=== PATIENT | female | born 1945 | race Caucasian/White ===

== ENCOUNTER 2018-05-28 07:30 | Inpatient (IN) | payer MEDICARE, OTHER ==
--- NOTE | 2018-05-19 11:42 | HP ---
HISTORY AND PHYSICAL: DATE OF ADMISSION/SURGERY: 05/28/18 DATE OF OFFICE VISIT: 05/15/18 SURGEON: Yola Mckay MD * (DICTATED BY JANINE REYNOSO) PROCEDURE: Right total hip arthroplasty. CHIEF COMPLAINT: Right hip pain. HISTORY OF PRESENT ILLNESS: Ms. Morris is a 72-year-old female with continued complaints of right hip pain. She has failed conservative treatment and elected to proceed with a right total hip arthroplasty, which is scheduled for 05/28/18. PAST MEDICAL HISTORY: Hypertension, high cholesterol, thrombocytopenia, and Sjogren's syndrome. PAST SURGICAL HISTORY: , appendectomy, bilateral knee arthroscopies, bilateral hammertoe repairs. CURRENT MEDICATIONS: 1. Valsartan 160 mg half a tab daily. 2. Amlodipine 2.5 mg daily. 3. Cevimeline 30 mg 3 times a day. 4. Metoprolol 100 mg daily. 5. Calcium with vitamin D. 6. Osteo Bi-Flex. 7. PreserVision AREDS. 8. Tylenol as needed. 9. Pravastatin sodium 20 mg q.h.s. 10. Ocuvite. ALLERGIES: No known drug allergies. FAMILY HISTORY: Lung cancer, breast cancer, and coronary artery disease. SOCIAL HISTORY: A 72-year-old female, she lives alone. She does not smoke or use drugs. Uses occasional alcohol. REVIEW OF SYSTEMS: A complete 14-point review of systems was reviewed with the patient. It was all negative or noncontributory. She denies history of DVT, PE , hepatitis, HIV, or anesthesia problems. PHYSICAL EXAMINATION GENERAL: She is well developed, well nourished. VITAL SIGNS: She stands 65 inches tall, weighs 180 pounds, blood pressure is 124/86, her heart rate is 72. HEENT: Normocephalic, atraumatic. NECK: Supple. No palpable lymph nodes. PULMONARY: Lungs are clear to auscultation bilaterally. CARDIO: Regular rate and rhythm. Strong S1 and S2. ABDOMEN: Soft, nontender, nondistended. NEUROLOGICAL: She is alert and oriented x3. MUSCULOSKELETAL: Right lower extremity: The skin is intact. There are no open wounds or abrasions. She has decreased internal and external rotation of the right hip and walks with an antalgic-type gait favoring her right hip. She has 2+ dorsalis pedis pulses, intact sensation. Her lower extremity muscle group strengths are intact at 5/5. ASSESSMENT AND PLAN: Ms. 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 She has failed conservative treatment and elected to proceed with a right total hip arthroplasty, which is scheduled for 05/28/[address] Mckay discussed the risks and benefits of the surgery at today's visit. All of her questions were answered. She will follow up with Dr. Mckay 2 weeks after the surgery. JANINE REYNOSO [id number]/[facility] #: [id number] ROMAINE
--- NOTE | 2018-07-16 03:41 | HP ---
HISTORY AND PHYSICAL: DATE OF ADMISSION/SURGERY: 07/23/18 DATE OF OFFICE VISIT: 07/13/18 SURGEON: Yola Mckay MD * (DICTATED BY JANINE REYNOSO) PROCEDURE: Right total hip arthroplasty. CHIEF COMPLAINT: Right hip pain. HISTORY OF PRESENT ILLNESS: Ms. Morris is a 72-year-old female with complaints of right hip pain. She has failed conservative treatment and elected to proceed with a right total hip arthroplasty. PAST MEDICAL HISTORY: Hypertension, high cholesterol, thrombocytopenia, and Sjogren's syndrome. PAST SURGICAL HISTORY: , appendectomy, bilateral knee arthroscopies, and bilateral hammertoe repairs. CURRENT MEDICATIONS: 1. Amlodipine 10 mg daily. 2. Metoprolol 100 mg daily. 3. Pravastatin 20 mg daily. 4. Ocuvite. 5. Cevimeline 30 mg. ALLERGIES: No known drug allergies. FAMILY HISTORY: Lung cancer, breast cancer, coronary artery disease, and stroke. SOCIAL HISTORY: She is a 72-year-old female, she lives alone. She does not smoke or use drugs. Uses occasional alcohol. REVIEW OF SYSTEMS: A complete 14-point review of systems was reviewed with the patient. It was all negative or noncontributory. PHYSICAL EXAMINATION GENERAL: She is well developed, well nourished, in no acute distress. VITAL SIGNS: She stands 65 inches tall, weighs 175 pounds, her blood pressure is 132/78, and her heart rate is 80. HEENT: Normocephalic, atraumatic. NECK: Supple. No palpable lymph nodes. PULMONARY: Her lungs are clear to auscultation bilaterally. CARDIO: Regular rate and rhythm. Strong S1, S2. ABDOMEN: Soft, nontender, nondistended. NEUROLOGICAL: She is alert and oriented x3. MUSCULOSKELETAL: Right lower extremity: Skin is intact. There are no open wounds or abrasions. She walks with an antalgic-type gait favoring her right hip. She has decreased internal and external rotation of right hip. She has 2 + dorsalis pedis pulse, intact sensation. Her lower extremity muscle group strengths are intact at 5/5. ASSESSMENT AND PLAN: Ms. Morris is a 72-year-old female with end-stage osteoarthritis of the right hip. She has failed conservative treatment and elected to proceed with a right total hip arthroplasty. The surgery is scheduled for 07/23/[address] Mckay discussed the risks and benefits of the surgery at today's visit and all of her questions were answered. She will follow up with Dr. Mckay 2 weeks after the surgery. JANINE REYNOSO [id number]/[facility] #: [id number] ROMAINE
[2018-07-22] MEDS ORDERED: Buffered Lidocaine 0.9% SYRIN* 5 ML/SYR SYRINGE INTRADERM ONE (13:06)
[2018-07-23] MEDS ORDERED: Gabapentin CAP(*) 300 MG PO ONE (06:00)
[2018-07-23] MEDS ORDERED: Dexamethasone IV* 4 MG/ML 1 ML (4 MG) IV SLOW PU ONE (06:00)
[2018-07-23] MEDS ORDERED: Acetaminophen IV 1GM/100ML * 1,000 MG/100 ML VIAL IVPB ONE (06:00)
[2018-07-23] MEDS ORDERED: Famotidine IV* 10 MG/ML 2 ML (20 mg) IV ONE (06:00)
[2018-07-23] MEDS ORDERED: ceFAZolin 2 GM in NS PREMIX(*) 2 GM/100 ML BAG IVPB ONE (12:55)
[2018-07-23] MEDS ORDERED: Famotidine IV* 10 MG/ML 2 ML (20 mg) ONE (13:03)
[2018-07-23] MEDS ORDERED: Dexamethasone IV* 4 MG/ML 1 ML (4 MG) ONE (13:04)
[2018-07-23] MEDS ORDERED: ROPIVACAINE 5 MG/ML 30 ML BTL (0.5%) ONE (13:54)
[2018-07-23] MEDS ORDERED: Ropivacaine (OR use only) 2 MG/ML 10 ML ONE (13:54)
[2018-07-23] MEDS ORDERED: fentaNYL* 50 MCG/ML 2 ML VIAL (100 MCG VIAL) ONE (13:56)
[2018-07-23] MEDS ORDERED: Midazolam* 1 MG/ML 5 ML VIAL (5 MG) ONE ×2 (13:56→15:00)
[2018-07-23] MEDS ORDERED: Propofol* 10 MG/ML 20 ML BTL IV PUSH ONE (13:57)
[2018-07-23] MEDS ORDERED: Ondansetron INJ* 2 MG/ML VIAL ONE (13:57)
[2018-07-23] MEDS ORDERED: fentaNYL* 50 MCG/ML 2 ML VIAL (100 MCG VIAL) IV PRN (15:43)
[2018-07-23] MEDS ORDERED: Ondansetron INJ* 2 MG/ML VIAL IV PRN (15:43)
[2018-07-23] MEDS ORDERED: Naloxone* 0.4 MG/ML 1 ML VIAL IV PRN (15:43)
[2018-07-23] MEDS ORDERED: HYDROmorphone INJ1* 1 MG/ML SYRINGE IV PRN (15:43)
[2018-07-23] MEDS ORDERED: DiMENhydriNATE IV* 50 MG/ML VIAL IV PUSH PRN (15:43)
[2018-07-23] MEDS ORDERED: Magnesium Hydroxide LIQ* 30 ML UDC PO PRN (16:03)
[2018-07-23] MEDS ORDERED: oxyCODONE/Acetamin 5/325 MG* TAB PO PRN (16:03)
[2018-07-23] MEDS ORDERED: Morphine INJ* 2 MG/ML 1 ML SYRINGE (TWO MG - NEW SYRINGE VERSION) IV PRN (16:03)
[2018-07-23] MEDS ORDERED: Bisacodyl SUPP* 10 MG SUPP PR PRN (16:03)
[2018-07-23] MEDS ORDERED: diPHENhydraMINE IV* 50 MG/ML 1 ml VIAL (BENADRYL) IV PRN (16:03)
[2018-07-23] MEDS ORDERED: Warfarin TAB(*) 6 MG PO ONE (17:00)
--- NOTE | 2018-07-23 17:28 | RAD ---
HISTORY: S/P RTHA COMPARISONS: April 10, 2018 VIEWS: 3 , Frontal view of the pelvis with frontal and crosstable lateral views of the right hip FINDINGS: BONE DENSITY: Normal. BONES: The patient is status post right hip arthroplasty. There is no hardware failure or osteolysis. JOINTS: The patient is status post right hip arthroplasty. ALIGNMENT: There is no dislocation. SOFT TISSUES: There is post surgical change to the soft tissues. OTHER FINDINGS: None. IMPRESSION: STATUS POST RIGHT HIP ARTHROPLASTY
[2018-07-23] MEDS ORDERED: CMCS:Saliva Substitute (NF) 1 SPRAY BTL MT PRN (18:35)
--- OUTSIDE RECORDS SUMMARY | 2018-07-23 19:50 | XMS REPORT ---
:1945 External Reference #:[id number] Author Organization [employer] Address [address] [place] [address] Phone [phone] Care Team Providers Name Role Phone Danilo Doyle MD Primary Care Physician Unavailable Payers Type Date Identification Numbers Payment Provider Subscriber Medicare Primary Policy Number: [id number] Medicare Adan Morris PayID: [id number] [address] [place] [address] Commercial Policy Number: [id number] [facility] Adan Morris PayID: [id number] [address] [place] [address] Problems Date Description Provider Status Onset: 04/10/2018 Localized, primary osteoarthritis of the Yola Nadia Mckay Active pelvic region and thigh Family History Date Family Member(s) Problem(s) Comments General Arthritis General Arthritis, Osteo General sister has deforming osteoarthritis General Lung Cancer Mother Lung Cancer Social History Type Date Description Comments Lives With Alone Occupation Retired ETOH Use Rarely consumes alcohol Smoking Patient is a former smoker Pt. quit 28 years ago. less than a pack/day Exercise Type/Frequency Exercises regularly Allergies, Adverse Reactions, Alerts Date Description Reaction Status Severity Comments 10/03/2016 NKDA active Medications Medication Date Status Form Strength Qnty SIG Indications Ordering Provider Biotene 10/20/ Active Gel 90unit apply Akash Oralbalance 2017 s twice Ramiro, Dry Mouth daily as M.D. Moisturizing needed for dry mouth Chapstick 10/20/ Active Ointment 10gm apply for M19.049 Akash Ultra Moisture 2017 dry lips Ramiro, Daytime M.D. Formula Evoxac 12/01/ Active Capsules 30mg 360cap take 1 M35.2015 s capsule by randi Rubio M.DSeven three times daily as needed for dry mouth Metoprolol 0000/ Active Tablets ER 100mg 1 by mouth Unknown Succinate ER 0000 24HR every day Calcium 1000 + 00/00/ Active Tablets 1000-800mg once daily Unknown D 0000 -Unit Osteo Bi-Flex / Active Tablets Unknown Advanced 0000 Triple Strength Preservision / Active Capsules 2 by mouth Unknown Areds 0000 every day Tylenol / Active Capsules 325mg take two Unknown 0000 tablets by mouth four times a day as needed Pravastatin / Active Tablets 20mg 1 tablet Unknown Sodium 0000 by mouth once daily at bedtime Acyclovir / Active Ointment 5% Apply To Unknown 0000 Cold Sore as Directed Valsartan / Active Tablets 160mg Take 1/2 Unknown 0000 Tablet By Mouth Every Day Amlodipine / Active Tablets 10mg 1 by mouth Unknown Besylate 0000 every day Glucosamine / Active Unknown 0000 Salivasure 10/03/ Hx Lozenges 60unit Use daily M35.01 2015 - s as needed Ramiro 04/21/ for M.DSeven 2017 dryness Fish Oil / Hx Capsules 300mg 1 by mouth Unknown Concentrate 0000 - twice day 2017 Omeprazole 00/00/ Hx Unknown 0000 - 2017 Doxycycline / Hx Unknown Hyclate 0000 - 2017 Medications Administered in Office Medication Date Status Form Strength Qnty SIG Indications Ordering Provider Depomedrol Administered Injection Yola 40MG 018 Nadia Mckay Vital Signs Date Vital Result Comment 07/13/2018 Height 65 inches 5'5" Weight 175.00 lb Heart Rate 80 /min BP Systolic 132 mmHg BP Diastolic 78 mmHg Respiratory Rate 14 /min Pain Level 5 BMI (Body Mass Index) 29.1 kg/m2 05/15/2018 Height 65 inches 5'5" Respiratory Rate 16 /min 04/21/2018 Height 65 inches 5'5" Weight 178.38 lb Heart Rate 95 /min BP Systolic 150 mmHg BP Diastolic 90 mmHg Pain Level 0 O2 % BldC Oximetry 97 % BMI (Body Mass Index) 29.7 kg/m2 04/10/2018 Height 65 inches 5'5" Weight 175.00 lb Respiratory Rate 16 /min Body Temperature 97.9 F Pain Level 8 BMI (Body Mass Index) 29.1 kg/m2 10/20/2017 Height 65 inches 5'5" Weight 173.00 lb Heart Rate 76 /min BP Systolic Sitting 189 mmHg BP Diastolic Sitting 96 mmHg Respiratory Rate 14 /min Pain Level 0 BMI (Body Mass Index) 28.8 kg/m2 04/21/2017 Height 65 inches 5'5" Weight 181.38 lb Heart Rate 84 /min BP Systolic Sitting 156 mmHg BP Diastolic Sitting 90 mmHg Respiratory Rate 14 /min Pain Level 0 BMI (Body Mass Index) 30.2 kg/m2 10/03/2016 Height 65 inches 5'5" Weight 180.00 lb Heart Rate 68 /min BP Systolic Sitting 130 mmHg BP Diastolic Sitting 80 mmHg Respiratory Rate 14 /min Body Temperature 96.6 F Pain Level 0 BMI (Body Mass Index) 30.0 kg/m2 Results Test Date Test Result H/L Range Note CBC Auto Diff 05/15/2018 White Blood Count 4.4 10^3/uL 3.5-10.8 Red Blood Count 4.26 10^6/uL 4.00-5.40 Hemoglobin 12.0 g/dL 12.0-16.0 Hematocrit 36 % 35-47 Mean Corpuscular Volume 85 fL 80-97 Mean Corpuscular Hemoglobin 28 pg 27-31 Mean Corpuscular HGB Conc 33 g/dL 31-36 Red Cell Distribution Width 14 % 10.5-15 Platelet Count 48 10^3/uL Low 150-450 Mean Platelet Volume 11.1 um3 High 7.4-10.4 Abs Neutrophils 2.7 10^3/uL 1.5-7.7 Abs Lymphocytes 1.1 10^3/uL 1.0-4.8 Abs Monocytes 0.5 10^3/uL 0-0.8 Abs Eosinophils 0.1 10^3/uL 0-0.6 Abs Basophils 0 10^3/uL 0-0.2 Abs Nucleated RBC 0 10^3/uL Granulocyte % 60.9 % 38-83 Lymphocyte % 25.5 % 25-47 Monocyte % 11.3 % High 0-7 Eosinophil % 1.4 % 0-6 Basophil % 0.9 % 0-2 Nucleated Red Blood Cells % 0.1 Urinalysis Profile 05/15/2018 Urine Color Yellow Urine Appearance Clear Urine Specific [employer] [place] 1.011 1.010-1.030 Urine pH 5.0 5-9 Urine Urobilinogen Negative Negative Urine Ketones Negative Negative Urine Protein Negative Negative Urine Leukocytes Trace Negative Urine Blood Negative Negative * * Negative 1 Urine Nitrite Negative Negative Urine Bilirubin Negative Negative Urine Glucose Negative Negative Urine White Blood Cell Trace(0-5/hpf) Absent Urine Red Blood Cell Absent Absent Urine Bacteria Absent Absent Urine Squamous Epithelial Cell Present Absent Inr/Protime 05/15/2018 Inr 0.96 0.77-1.02 Laboratory test finding 05/15/2018 Partial Thrombo Time 28.3 seconds 26.0 -36.3 PTT Comp Metabolic Panel 05/15/2018 Sodium 132 mmol/L Low 135-145 Potassium 4.3 mmol/L 3.5-5.0 Chloride 99 mmol/L Low 101-111 Co2 Carbon Dioxide 28 mmol/L 22-32 Anion Gap 5 mmol/L 2-11 Glucose 92 mg/dL 70-100 Blood Urea Nitrogen 16 mg/dL 6-24 Creatinine 0.68 mg/dL 0.51-0.95 BUN/Creatinine Ratio 23.5 High 8-20 Calcium 9.1 mg/dL 8.6-10.3 Total Protein 7.2 g/dL 6.4-8.9 Albumin 3.8 g/dL 3.2-5.2 Globulin 3.4 g/dL 2-4 Albumin/Globulin Ratio 1.1 1-3 Total Bilirubin 0.60 mg/dL 0.2-1.0 Alkaline Phosphatase 89 U/L 34-104 Alt 13 U/L 7-52 Ast 20 U/L 13-39 Egfr Non- 85.3 >60 Egfr 103.2 >60 2 Type & Screen 05/15/2018 Patient Blood Type O Negative Antibody Screen POSITIVE Laboratory test finding 05/15/2018 Direct Eliseo NEGATIVE Antibody Identification SEE RESULTS BELO <SEE NOTE> 3 Urine Culture And 05/15/2018 Urine Culture SEE RESULT BELOW 4 Sensitivities Laboratory test finding 10/07/2016 C Reactive Protein 1.53 mg/L < 5.00 5 Liver Function Panel 10/07/2016 Total Protein 7.7 g/dL 6.4-8.9 Albumin 3.7 g/dL 3.2-5.2 Globulin 4.0 g/dL 2-4 Albumin/Globulin Ratio 0.9 Low 1-3 Total Bilirubin 0.70 mg/dL 0.2-1.0 Direct Bilirubin 0.10 mg/dL 0.03-0.18 Indirect Bilirubin 0.6 mg/dL 0.3-1.0 Alkaline Phosphatase 75 U/L 34-104 Alt 10 U/L 7-52 Ast 18 U/L 13-39 Laboratory test finding 10/07/2016 Complement C3 137 mg/dL 75 - 175 6 Complement C4 27 mg/dL 14 - 40 7 Anti Double Stranded Dna AB <12.3 IU/mL 8 Angiotensin Converting Enzyme 28 U/L 8 - 53 9 1 *Ascorbic acid is present which may interfere with detection of blood. 2 Because ethnic data is not always readily available, this report includes an eGFR for both -Americans and non- Americans. The National Kidney Disease Education Program (NKDEP) does not endorse the use of the MDRD equation for patients that are not between the ages of 18 and 70, are , have extremes of body size, muscle mass, or nutritional status, or are non- or non-. According to the National Kidney Foundation, irrespective of diagnosis, the stage of the disease is based on the level of kidney function: Stage Description GFR(mL/min/1.73 m(2)) 1 Kidney damage with normal or decreased GFR 90 2 Kidney damage with mild decrease in GFR 60-89 3 Moderate decrease in GFR 30-59 4 Severe decrease in GFR 15-29 5 Kidney failure <15 (or dialysis) 3 SEE RESULTS BELOW C D 4 SEE RESULT BELOW Name: ADAN MORRIS : [address]: Yola Mckay MD Acct: [id number] Unit: [id number] AGE: 72 Location: [facility] Re05/15/18 SEX: F Status: REG REF SPEC: [id number] TONY: 05/15/18-[address] [facility] [address]: Yola Mckay MD REQ: [id number] RECD: 05/15/18141 STATUS: COMP OTHR DR: Danilo Doyle MD _ SOURCE: URINE SPDESC: ORDERED: Urine Culture Urine Source: Clean Catch Procedure Result Reported Site Urine Culture Final 05/16/18- 1306 ML No growth of clinically significant organisms * ML - Main Lab . END OF REPORT DEPARTMENT OF PATHOLOGY, [address] [place] [id number] Jorge Villa M.D. Director [facility] # [id number] 5 Acute inflammation: >10.00 6 Test Performed by: [place] [address] Inspector Watch Train: Gonzales Long II, M.D., Ph.D. 7 Test Performed by: [place] [address] Inspector Watch Train: Gonzales Long II, M.D., Ph.D. 8 REFERENCE VALUE <30.0 (Negative) Test Performed by: [place] [address] Inspector Watch Train: Gonzales Long II, M.D., Ph.D. 9 Test Performed by: [place] [address] Inspector Watch Train: Gonzales Long II, M.D., Ph.D. Procedures Date CPT Code Description Status 06/17/2018 69429 Inj/Aspir Major JT Or Bursa W/ US Completed Encounters Type Date Location Provider CPT E/M Dx Office Visit 07/13/2018 [facility] Yola Mckay M.D. 64204 M25.551 8:45a Of Maria Elena M16.11 Office Visit 04/21/2018 11:00a [facility] Rubio 41773 R68.2 Yadiel Zuniga M19.049 Office Visit 04/10/2018 10:30a [facility] Yola Mckay M.D. 74781 M25.551 Maria Elena M16.11 Office Visit 10/20/2017 11:00a [facility] 91788 R68.2 Yadiel Zuniga Z79.899 R76.0 M19.049 Office Visit 04/21/2017 11:00a [facility] 57558 R68.2 Yadiel Zuniga Z79.899 Office Visit 10/03/2016 1:00p [facility], [address]886 R76.0 [facility] Nadia R68.2 M17.12 M19.049 Plan of Care Future Appointment(s):07/23/2018 4:30 pm - Shekhar Bryson PA-C at [facility].A.07/23/2018 4:30 pm - JANINE Mathews at [facility]..07/23/2018 4:30 pm - Yola Mckay M.D. at [facility]..04/21/2019 11:00 am - Akash Rubio M.D. at [facility]07/13/2018 - Yola Mckay M.D.M25.551 Pain in right hipFollow up :Follow up: 7-10 days before [id number] Unilateral primary osteoarthritis, right hip
[2018-07-23] MEDS ORDERED: oxyCODONE/Acetamin 5/325 MG* TAB ONE (20:51)
[2018-07-23] MEDS ORDERED: Morphine INJ* 2 MG/ML 1 ML SYRINGE (TWO MG - NEW SYRINGE VERSION) ONE (20:51)
[2018-07-23] MEDS: oxyCODONE/Acetamin 5/325 MG* TAB PO PRN (21:00)
[2018-07-23 21:56] LABS: Hematocrit 38 % (35-47); Hemoglobin 12.6 g/dl (12.0-16.0); Mean Corpuscular HGB Conc 33 g/dl (31-36); Mean Corpuscular Hemoglobin 28 pg (27-31); Mean Corpuscular Volume 86 fL (80-97); Red Blood Count 4.43 10^6/ul (4.00-5.40)
[2018-07-23 21:57] LABS: ABS Basophils 0 10^3/ul (0-0.2); ABS Eosinophils 0 10^3/ul (0-0.6); ABS Lymphocytes 1.3 10^3/ul (1.0-4.8); ABS Monocytes 0.9 10^3/ul (0-0.8); ABS Neutrophils 4.7 10^3/ul (1.5-7.7); ABS Nucleated RBC 0 10^3/ul; Lymphocyte % 18.2 % (25-47); Mean Platelet Volume 10.2 um3 (7.4-10.4); Platelet Count 89 10^3/ul (150-450); Red Cell Distribution Width 15 % (10.5-15)
[2018-07-23 21:58] LABS: Eosinophil % 0.5 % (0-6); Nucleated Red Blood Cells % 0
--- NOTE | 2018-07-23 22:56 | CONS ---
CC: Dr. Danilo Doyle; Dr. Mckay * CONSULTATION REPORT: DATE OF CONSULT: 07/23/18 PRIMARY CARE PROVIDER: Dr. Danilo Doyle. ATTENDING PHYSICIAN WHILE IN THE HOSPITAL: Dr. Darby Mcgrath (report dictated by Nicholas Dickson NP). REASON FOR MEDICAL CONSULTATION: Evaluation of medical management and comorbid medical conditions. HISTORY OF PRESENT ILLNESS: I refer you to Dr. Mckay's H and P for further details. In short, Mrs. Morris is a 72-year-old female patient. 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 She is coming into our orthopedic service today because she has been experiencing a significant amount of right hip pain. She underwent care, underwent injections, PT, failed conservative therapy, and sought care with Dr. Mckay and it was felt that she would benefit from a total hip replacement, which underwent today. She was evaluated in the PACU setting. She is denying having any chest pain or shortness of breath. She denies having any abdominal pain. She says that she has decreased sensation to her right leg, but she did have a spinal anesthetic done today. She says movement is slowly coming back. She denies having any chest pain or shortness of breath. No abdominal pain and she denies feeling lightheaded or dizzy, but because of her medical complexity, we were asked to evaluate in consult. PAST MEDICAL HISTORY: Again significant for: 1. Hypertension. 2. Hyperlipidemia. 3. 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 4. Sjogren's. 5. PAOLA, again mild and does not wear CPAP. PAST SURGICAL HISTORY: 1. She has had . 2. Appendectomy. 3. Bilateral knee arthroscopies. 4. Hammertoe repair. 5. Right total hip arthroplasty done today. MEDICATIONS: Her home medications according to the patient include: 1. Amlodipine 10 mg daily. 2. PreserVision 2 tablets p.o. daily. 3. Amlodipine 10 mg daily. 4. Biotin 1 spray by mouth t.i.d. as needed. 5. Pravachol 20 mg at bedtime. 6. Elocon 1 application topically daily as needed. 7. Metoprolol succinate 100 mg p.o. daily in the morning. 8. Osteo Bi-Flex 2 tablets p.o. in the morning. 9. Evoxac 30 mg p.o. t.i.d. 10. Calcium 1 tablet p.o. q.a.m. 11. Acyclovir 1 application topically t.i.d. as needed. 12. Tylenol Extra Strength 500 to 1000 mg every 6 hours as needed. ALLERGIES TO MEDICATIONS: MAXIMO INHIBITOR, which caused her to have cough. FAMILY HISTORY: Her mother had a history of lung cancer. Father had a history of heart disease. SOCIAL HISTORY: She rarely drinks alcohol. She does not smoke. She is . Surrogate decision maker is her daughter, Tanika. REVIEW OF SYSTEMS: There is no documented fevers. She denies having any significant weight change. There was no double vision. She denies having any ear discharge. There was no rhinorrhea. There is no sore throat. There is no thyroid enlargement. She again denies having any chest pain. There is no orthopnea. There is no nocturnal dyspnea. There was no abdominal pain. No nausea, no vomiting, no dysuria, no frequency, no seizure, no loss of consciousness, no pruritus, no skin ulcerations. Review of 14 systems completed , all others negative. PHYSICAL EXAM: Vital Signs: Blood pressure 129/79 with a pulse of 68, respirations are 15, O2 sat 98% on 2 L, temperature is 97.0. General: At this time, Mrs. Morris is a 72-year-old female patient. She was evaluated in the PACU setting. She appears to be well nourished, well developed. She does not appear to be in any acute distress. HEENT: Head: Atraumatic and normocephalic. Eyes: EOMs are intact. Her sclerae was anicteric and not pale. Neck was supple. Throat: Oral mucosa appears to be moist. No oropharyngeal erythema. Heart: Sounds S1, S2. She had a regular rate and rhythm. There were no murmurs, rubs, or gallops. Lungs: Clear to auscultation. No wheezes, rales, or rhonchi. Abdomen: Bowel sounds hypoactive, but present. Extremities : She has limited range of motion as she using in a hip adductor pillow, but distal CSM checks are intact with the exception of sensation to the right lower extremity, but she is starting to now have plantar and dorsiflexion and she has good pulse and cap refill to the right lower extremity. She has good sensation to the left lower extremity at this point and good cap refill and 2+ pulses. No peripheral edema. She moves the upper extremity with 5/5 strength. Neurologically, she is awake. She is alert. She is oriented x3. She had no gross focal deficits. Her skin was grossly intact with the exception she has an incision to the right hip, which is covered with an ABD dressing that is clean, dry, and intact. DIAGNOSTIC STUDIES/LAB DATA: She did have labs today. WBC of 7, RBC of 4.43, hemoglobin of 12.6, hematocrit of 37.9, platelet count was 89,000. Platelet count 15 days ago was 79,000. Her INR was 0.96. Sodium was 133, potassium 4.6 , chloride 100, bicarb 27, BUN 15, creatinine 0.71, glucose 94. Urine preop showed 3+ leukocyte esterase, 3+ wbc's. Urine culture was negative. She did have a preop chest x-ray, which showed no active cardiopulmonary disease. She had a preoperative EKG as well showing a normal sinus rhythm with a rate of 70. She had a PAC. No ST elevations or T-wave inversions. Old medical records are reviewed. ASSESSMENT AND PLAN: Mrs. Morris is a 72-year-old female patient presenting to the orthopedic service today for an elective total hip. We were asked to evaluate in consult. Recommendations at this point are: 1. Status post right total hip with further management with Dr. Mckay and her team. 2. Hypertension. I will hold her Norvasc. Postoperatively, we will restart this depending on blood pressure readings tomorrow. We will obviously continue the beta- madiha and add medications based on her blood pressure readings. 3. Hyperlipidemia. Continue statin therapy. 4. History of thrombocytopenia. Presumed ITP. Platelet count preoperatively today was 89,000. We will follow this closely. Monitor for any signs of bleeding. If this becomes an issue, we will consider low threshold for Hematology consult and possible transfusion, but at this point, she appears to be stable and we will continue to monitor. 5. History of Sjogren's. It appears to be well controlled. We will continue her meds as prescribed. 6. History of obstructive sleep apnea. It is mild. I will go ahead and do 24 - hour pulse oximetry monitoring postoperatively, particularly in the setting of a block and spinal anesthesia. 7. DVT prophylaxis. Deferred to the primary team, but again, we will monitor the platelets closely. I would recommend avoiding heparin. 8. Fluid, electrolyte, nutrition. She can have a regular diet. 9. Code status. Full code. TIME SPENT: Time spent on the consult was 60 minutes, greater than half time was spent [id number] with the patient obtaining my history and physical, other half time was spent going over the plan of care with the patient and implementing plan of care. I did discuss the plan of care with my attending, Dr. Mcgrath; she is in agreement. NICHOLAS DICKSON, CALLY [id number]/[facility] #: [id number] MTDD
[2018-07-23] MEDS: Docusate CAP* 100 MG PO SCH (23:27)
[2018-07-23] MEDS: oxyCODONE TAB* 5 MG TAB PO PRN (23:27)
[2018-07-23] MEDS: Acetaminophen TAB* 325 MG PO SCH (23:29)
[2018-07-23] MEDS: Atorvastatin* 10 MG TAB PO SCH (23:31)
[2018-07-23] MEDS: Magnesium Hydroxide LIQ* 30 ML UDC PO SCH (23:33)
[2018-07-23] MEDS: ceFAZolin 1 GM in Dextrose (*) 1 GM/50 ML BAG IVPB SCH (23:39)
[2018-07-24] MEDS: CEVIMELINE 30 MG PO SCH ×4 (00:11→19:27)
[2018-07-24] MEDS: oxyCODONE/Acetamin 5/325 MG* TAB PO PRN ×2 (04:32→09:25)
[2018-07-24] MEDS: ceFAZolin 1 GM in Dextrose (*) 1 GM/50 ML BAG IVPB SCH ×2 (06:36→14:17)
--- NOTE | 2018-07-24 07:02 | RAD ---
INDICATION: Total right hip replacement. COMPARISON: Comparison is made with a prior x-ray study of the right hip from April 08, 2008. TECHNIQUE: An AP view of the pelvis and frontal and lateral views of the right hip were obtained. FINDINGS: The patient is undergoing a total hip replacement surgery. The acetabular prostheses is in place and there is a femoral template prostheses in place. The bones and prostheses are in normal alignment. There is air within the soft tissues consistent with the patient's surgery. IMPRESSION: INTRAOPERATIVE CONTROL FILMS.
[2018-07-24] MEDS: Acetaminophen TAB* 325 MG PO SCH ×3 (07:15→21:53)
[2018-07-24 08:33] LABS: ABS Basophils 0 10^3/ul (0-0.2); ABS Eosinophils 0 10^3/ul (0-0.6); ABS Lymphocytes 0.8 10^3/ul (1.0-4.8); ABS Monocytes 0.8 10^3/ul (0-0.8); ABS Neutrophils 6.3 10^3/ul (1.5-7.7); ABS Nucleated RBC 0 10^3/ul; Eosinophil % 0 % (0-6); Hematocrit 28 % (35-47); Hemoglobin 9.4 g/dl (12.0-16.0); Lymphocyte % 9.6 % (25-47); Mean Corpuscular HGB Conc 34 g/dl (31-36); Mean Corpuscular Hemoglobin 29 pg (27-31); Mean Corpuscular Volume 85 fL (80-97); Mean Platelet Volume 10.3 um3 (7.4-10.4); Nucleated Red Blood Cells % 0; Platelet Count 53 10^3/ul (150-450); Red Blood Count 3.25 10^6/ul (4.00-5.40); Red Cell Distribution Width 15 % (10.5-15); White Blood Count 7.9 10^3/ul (3.5-10.8)
[2018-07-24 08:34] LABS: INR 1.08 (0.77-1.02)
[2018-07-24] MEDS: Magnesium Hydroxide LIQ* 30 ML UDC PO SCH ×2 (08:34→19:28)
[2018-07-24] MEDS: Metoprolol Succinate XL TAB* 100 MG PO SCH (08:35)
[2018-07-24] MEDS: Docusate CAP* 100 MG PO SCH ×2 (08:35→19:27)
[2018-07-24] MEDS ORDERED: Vitamin THERAPEUTIC TAB PO SCH (09:00)
[2018-07-24 09:04] LABS: EGFR Non-African American 85.3 (>60)
--- NOTE | 2018-07-24 09:26 | PN ---
Progress Note - Progress Note Date of Service: 07/24/18 SOAP: Subjective: POD #1 Right TAHIRA, doing well. Pain controlled. Denies CP/SOB, n/v, f/c. Objective: Vitals: Temp Pulse Resp BP Pulse Ox 97.8 F 66 18 121/65 97 07/24/18 03:46 07/24/18 07:15 07/24/18 07:15 07/24/18 07:15 07/24/18 07:15 Gen: A&Ox3, NAD at rest sitting in bed Right Hip: Dressing C/D/I, thigh soft, NT. +f/e at ankles and MTPs. N/V intact Labs: Laboratory Results - last 24 hr 07/23/18 07/24/18 07/24/18 13:07 07:53 07:53 WBC 7.0 7.9 RBC 4.43 3.25 L Hgb 12.6 9.4 L Hct 38 28 L MCV 86 85 MCH 28 29 MCHC 33 34 RDW 15 15 Plt Count 89 L 53 L MPV 10.2 10.3 Neut % (Auto) 67.7 79.8 Lymph % (Auto) 18.2 L 9.6 L Gove % (Auto) 12.9 H 10.5 H Eos % (Auto) 0.5 0 Baso % (Auto) 0.7 0.1 Absolute Neuts (auto) 4.7 6.3 Absolute Lymphs (auto) 1.3 0.8 L Absolute Monos (auto) 0.9 H 0.8 Absolute Eos (auto) 0 0 Absolute Basos (auto) 0 0 Absolute Nucleated RBC 0 0 Nucleated RBC % 0 0 INR (Anticoag Therapy) 1.08 H Sodium Potassium Chloride Carbon Dioxide Anion Gap BUN Creatinine Est GFR ( Amer) Est GFR (Non-Af Amer) BUN/Creatinine Ratio Glucose Calcium 07/24/18 07:53 WBC RBC Hgb Hct MCV MCH MCHC RDW Plt Count MPV Neut % (Auto) Lymph % (Auto) Gove % (Auto) Eos % (Auto) Baso % (Auto) Absolute Neuts (auto) Absolute Lymphs (auto) Absolute Monos (auto) Absolute Eos (auto) Absolute Basos (auto) Absolute Nucleated RBC Nucleated RBC % INR (Anticoag Therapy) Sodium 133 L Potassium 3.9 Chloride 102 Carbon Dioxide 28 Anion Gap 3 BUN 21 Creatinine 0.68 Est GFR ( Amer) 103.2 Est GFR (Non-Af Amer) 85.3 BUN/Creatinine Ratio 30.9 H Glucose 134 H Calcium 8.4 L Assessment: POD #1 Right TAHIRA Plan: PT/OT with posterior hip precautions INR 1.08, Coumadin 6mg tonight with Lovenox bridge. Spoke with Dr. Chin who recommends to continue with this, recheck platelets tomorrow. Will consult for possible IVIG Continue current pain medication
[2018-07-24] MEDS: Ondansetron INJ* 2 MG/ML VIAL IV PRN ×2 (10:58→17:42)
[2018-07-24] MEDS ORDERED: Enoxaparin(*) 30 MG/0.3 ML SYR SUBCUT SCH (12:00)
[2018-07-24] MEDS ORDERED: Enoxaparin(*) 40 MG/0.4 ML SYR SUBCUT SCH (12:00)
[2018-07-24] MEDS ORDERED: Metoclopramide IV* 5 MG/ML 2 ML VIAL ONE (13:21)
[2018-07-24] MEDS ORDERED: Metoclopramide IV* 5 MG/ML 2 ML VIAL IV PRN (13:24)
[2018-07-24] MEDS ORDERED: Warfarin TAB(*) 6 MG PO SCH (17:00)
[2018-07-24] MEDS: oxyCODONE TAB* 5 MG TAB PO PRN (17:20)
--- NOTE | 2018-07-24 18:52 | PN ---
Progress Note - Progress Note Date of Service: 07/24/18 SOAP: Subjective: []Nausea and pain but otherwise doing fine. Surgery without bleeding complications to date. Acetaminophen (Tylenol Tab*) 650 mg PO Q8HR [facility] Last Admin: 07/24/18 13:08 Dose: 650 mg Atorvastatin Calcium (Lipitor*) 5 mg PO BEDTIME [facility]; Protocol Last Admin: 07/23/18 23:31 Dose: 5 mg Bisacodyl (Dulcolax Supp*) 10 mg [place] DAILY PRN PRN Reason: constipation Cevimeline HCl (Evoxac(Nf)) 30 mg PO TID [facility] Last Admin: 07/24/18 14:17 Dose: 30 mg Diphenhydramine HCl (Benadryl Iv*) 25 mg IV Q6H PRN PRN Reason: itching Docusate Sodium (Colace Cap*) 100 mg PO BID [facility] Last Admin: 07/24/18 08:35 Dose: 100 mg Enoxaparin Sodium (Lovenox(*)) 30 mg SUBCUT Q24H [facility] Last Admin: 07/24/18 12:21 Dose: 30 mg Lactated Ringer's (Lactated Ringers 1000 Ml Bag*) 1,000 mls @ 100 mls/hr IV PER RATE [facility] Last Admin: 07/24/18 17:23 Dose: 100 mls/hr Lactulose (Lactulose*) 30 ml PO Q6H PRN PRN Reason: constipation Magnesium Hydroxide (Milk Of Magnesia Liq*) 30 ml PO BID [facility] Last Admin: 07/24/18 08:34 Dose: 30 ml Magnesium Hydroxide (Milk Of Magnesia Liq*) 30 ml PO Q6H PRN PRN Reason: constipation Metoclopramide HCl (Reglan Iv*) 10 mg IV Q6H PRN PRN Reason: NAUSEA Metoprolol Succinate (Toprol Xl Tab*) 100 mg PO QAM [facility] Last Admin: 07/24/18 08:35 Dose: 100 mg Morphine Sulfate (Morphine Inj ((Syringe))*) 2 mg IV Q2H PRN PRN Reason: PAIN - SEVERE Last Admin: 07/23/18 20:53 Dose: 2 mg Multivitamins/Minerals (Preservision Areds 2) 2 cap PO DAILY [facility] Ondansetron HCl (Zofran Inj*) 4 mg IV Q6H PRN PRN Reason: nausea Last Admin: 07/24/18 17:42 Dose: 4 mg Oxycodone HCl (Roxycodone Tab*) 10 mg PO Q4H PRN PRN Reason: PAIN - SEVERE Last Admin: 07/24/18 17:20 Dose: 5 mg Oxycodone/Acetaminophen (Percocet 5/325 Tab*) 1 tab PO Q4H PRN PRN Reason: PAIN Oxycodone/Acetaminophen (Percocet 5/325 Tab*) 2 tab PO Q4H PRN PRN Reason: PAIN Last Admin: 07/24/18 09:25 Dose: 2 tab Saliva Substitute (Biotene Moisturizing Mouth (Nf)) 1 spray MT TID PRN; Protocol PRN Reason: dry mouth Warfarin Sodium (Coumadin Tab(*)) 6 mg PO DAILY@1700 J[facility]; Protocol Last Admin: 07/24/18 17:21 Dose: 6 mg PMHx: ITP - Baseline platelets [id number] - No response to steroids - Responded to IVIG, given 1 gm prior to surgery. - Pre-op Plts 89,000 Objective: [] Vital Signs Temp Pulse Resp BP Pulse Ox 97.6 F 69 18 123/64 98 07/24/18 15:28 07/24/18 15:28 07/24/18 17:20 07/24/18 15:28 07/24/18 16:00 No distress HEENT- pale CTA RRR S1S2 +BS NT Partial exam of leg, no bruise or hematoma Hgb 9.4 Assessment: []72 year old ITP, treated with IVIG 80 gm 07/08, 07/09 with platelets to 89,000. Tolerated procedure well and platelet count POD 1 of 53,000. Plan: []1. Check CBC daily, for Platelets < 50,000 or clinical concern for bleeding then give IVIG 80 gm x 1. 2. Lovenox/Coumadin for DVT prophylaxis per protocol
[2018-07-24] MEDS: Atorvastatin* 10 MG TAB PO SCH (19:27)
--- NOTE | 2018-07-25 03:38 | OP ---
OPERATIVE REPORT: DATE OF OPERATION: 07/23/18 DATE OF : 47 ATTENDING SURGEON: Yola Mckay MD REHAB CARE ASSISTANT: JANINE Jennings Ms. did help throughout the procedure with preparation of the leg, wound retraction, manipulation of the hip and wound closure. ANESTHESIOLOGIST: Dr. Milton. ANESTHESIA: Spinal. PRE-OP DIAGNOSIS: Severe end-stage degenerative osteoarthritis of the right hip joint. POST-OP DIAGNOSIS: Severe end-stage degenerative osteoarthritis of the right hip joint. OPERATIVE PROCEDURE: Right total hip arthroplasty. COMPLICATIONS: None. ESTIMATED BLOOD LOSS: 250 cc. SPECIMENS: Femoral head and acetabular reaming sent to Pathology. HARDWARE USED: This is uncemented [place] total hip arthroplasty hardware. For the cup, a Trident hemispherical shell 52E. For the liner, a Trident X3 0- degree polyethylene insert 36E. For the stem, an Accolade TMZF size 3 with a 127-degree neck angle with V40 femoral head 36 -3.5. BRIEF HISTORY/INDICATIONS: Ms. Morris is a 72-year-old female with years of increasingly severe right hip pain. Radiograph showed [id number] arthritis. Due to continue pain and decreased quality of life, she elected to undergo right total hip arthroplasty. She had failed conservative treatment with anti- inflammatories, pain medications, intra-articular injection and physical therapy. Informed consent was obtained from the patient. She understood the risk of surgery included but were not limited to bleeding, infection, damage to nearby structures, continued pain, need for further surgery, intraoperative fracture, nerve palsy, hardware failure or loosening, dislocation, leg length discrepancy, stroke, heart attack, blood clot and . She wished to proceed. INTRAOPERATIVE FINDINGS: Intraoperatively, the patient was noted to have extensive osteophyte formation around the acetabulum of the femoral neck. She had complete loss of cartilage along the femoral head and acetabulum. DESCRIPTION OF PROCEDURE: Ms. Morris was identified in the preanesthesia unit. Her right lower extremity was marked as the correct operative side. Informed consent was signed and placed in the chart. The patient was taken to the operating room and placed under spinal anesthesia. A Lee catheter was placed. She was placed in the left lateral decubitus position on the peg board. All bony prominences were well padded. Right lower extremity was prepped and draped in the usual sterile fashion. Preop time-out was made to correctly identify the patient's side and site. Appropriate perioperative antibiotics were given within 1 hour of incision. A standard posterior hip incision was made with a 10-blade and carried down to the lateral fascial layer. Lateral fascia layer was incised in line with the skin incision. Charnley retractor was placed. The piriformis and conjoint tendons were elevated off the posterolateral femur and tagged with #5 Ethibond. Next, the posterolateral capsular flap was made with electrocautery and this was also tagged with #5 Ethibond. The hip was carefully dislocated. Lesser troch to center of the femoral head was measured at 55 mm. Oscillating saw was used to make the appropriate femoral neck cut. The femoral head was carefully removed. After appropriate placement of retractors, the acetabulum was well visualized. Long-handled knife was used to sharply remove any labrum from the acetabular rim. The acetabulum was sequentially reamed up to a size 51. 51 reamer had good subchondral bone. Bleeding bone bed was established. A 51 trial had good fit with appropriate anteversion and abduction angle. Final implant chosen was a Trident 52E hemispherical shell. This was impacted into the acetabulum without difficulty. The acetabular cup was stable with appropriate anteversion and abduction angle. A Trident X3 0-degree polyethylene insert 36E was chosen. This was impacted into the acetabulum without difficulty. The insert was noted to be stable and was rechecked and noted to be stable once again. Attention was next turned to preparation of the femoral canal. A femoral canal finder was used to enter the proximal femur. The proximal femur was sequentially broached up to a size 3. Size 3 broach had excellent fit with appropriate anteversion. A 127 neck trial was chosen as well as a 36 +0 head trial. Lesser troch to the center of the femoral head measured 56 mm. The hip was reduced and taken through range of motion. The hip was stable in all positions. There was good soft tissue tension and appropriate leg lengths. The hip was appropriately dislocated. All trials were removed. Final implant chosen was an Accolade TMZF size 3 with a 127-degree neck angle. This was impacted into the femoral canal without difficulty and had appropriate anteversion with good stability. The stem stood up 2 more millimeters than the broach, therefore a 36 -3.5 Biolox delta ceramic V40 femoral head was chosen as the final implant. This was impacted onto the femoral neck. Lesser troch to the center of the femoral head measurement was 56 mm. The hip was reduced and taken through a range of motion. The hip was stable in all positions. There was good soft tissue tension and appropriate leg lengths. The hip was copiously irrigated with sterile saline. Previously tagged tendons were reapproximated to the posterolateral femur through 2 trochanteric drill holes. The hip was once again copiously irrigated with sterile saline. Lateral fascial layer was closed using interrupted #1 Vicryl. The rest of the incision was closed in a layered fashion using 0 and 2-0 Vicryl. Skin was closed using running 3-0 Monocryl and Dermabond. Sterile Adaptic, 4x4s, and paper tape were used to cover the incision. The patient's anesthesia was reversed without difficulty. She was taken to the PACU in stable condition. Intended weightbearing will be weightbearing as tolerated. She will have posterior hip precautions. The patient does have significant history of thrombocytopenia. She was treated with steroids and her platelet level is now about 85,000. We contacted the hospitalist to see Lovenox will be appropriate postoperative DVT prophylaxis and she will have this daily over the next month. [id number]/[facility] #: [id number] ROMAINE
[2018-07-25] MEDS: Acetaminophen TAB* 325 MG PO SCH ×3 (05:35→21:59)
[2018-07-25 06:00] LABS: Hematocrit 26 % (35-47); Hemoglobin 8.9 g/dl (12.0-16.0); Mean Platelet Volume 10.4 um3 (7.4-10.4); Platelet Count 46 10^3/ul (150-450)
[2018-07-25 06:02] LABS: INR 1.36 (0.77-1.02)
[2018-07-25] MEDS ORDERED: IMMUNE GLOBULN IV ONE (06:09)
[2018-07-25] MEDS: Docusate CAP* 100 MG PO SCH ×2 (08:56→20:08)
[2018-07-25] MEDS: CEVIMELINE 30 MG PO SCH ×3 (08:57→21:01)
[2018-07-25] MEDS: MULTIVITAMINS PO SCH (08:57)
[2018-07-25] MEDS: Metoprolol Succinate XL TAB* 100 MG PO SCH (08:57)
[2018-07-25] MEDS: MINERALS AREDS2 PO SCH (08:57)
--- NOTE | 2018-07-25 10:33 | PN ---
Progress Note - Progress Note Date of Service: 07/25/18 SOAP: Subjective: [Pt reports pain well managed. Denies CP/SOB, n/v, dizziness. Slept, ate breakfast] Objective: [A and O x 3, NAD R hip dressing changed. Wound benign. No drainage or erythema. Distal gross motor, NV function intact, calves soft Being followed by , Dr. Read for low platelets Vital Signs: Temp Pulse Resp BP Pulse Ox 98.0 F 95 18 136/69 94 07/25/18 07:39 07/25/18 07:39 07/25/18 07:39 07/25/18 07:39 07/25/18 07:39 Laboratory Results - last 24 hr 07/25/18 07/25/18 05:41 05:41 Hgb 8.9 L Hct 26 L Plt Count 46 L MPV 10.4 INR (Anticoag Therapy) 1.36 H ] Assessment: [s/p R TAHIRA POD #2 ] Plan: [PT/OT - posterior hip precautions IVIG 80 mg given this morning per Dr. Read Recheck platelets tomorrow INR 1.36 - 6mg Coumadin today]
[2018-07-25] MEDS: Ondansetron INJ* 2 MG/ML VIAL IV PRN (11:00)
[2018-07-25] MEDS: Magnesium Hydroxide LIQ* 30 ML UDC PO SCH ×2 (11:53→20:08)
[2018-07-25] MEDS ORDERED: Scopolamine 1.5 mg* PATCH ONE (12:10)
[2018-07-25] MEDS: traMADol TAB* 50 MG PO PRN ×2 (12:19→21:00)
[2018-07-25] MEDS: Atorvastatin* 10 MG TAB PO SCH (21:01)
[2018-07-26] MEDS: traMADol TAB* 50 MG PO PRN ×3 (05:05→17:37)
[2018-07-26] MEDS: Acetaminophen TAB* 325 MG PO SCH ×3 (05:05→21:27)
[2018-07-26 06:15] LABS: INR 2.04 (0.77-1.02)
[2018-07-26 06:24] LABS: Hematocrit 23 % (35-47); Hemoglobin 7.8 g/dl (12.0-16.0); Mean Platelet Volume 9.8 um3 (7.4-10.4); Platelet Count 68 10^3/ul (150-450)
[2018-07-26] MEDS: Magnesium Hydroxide LIQ* 30 ML UDC PO SCH ×2 (08:11→21:29)
[2018-07-26] MEDS: Metoprolol Succinate XL TAB* 100 MG PO SCH (08:20)
[2018-07-26] MEDS: Docusate CAP* 100 MG PO SCH ×2 (08:20→21:27)
[2018-07-26] MEDS: MINERALS AREDS2 PO SCH (08:21)
[2018-07-26] MEDS: MULTIVITAMINS PO SCH (08:21)
[2018-07-26] MEDS: CEVIMELINE 30 MG PO SCH ×3 (08:21→21:26)
--- NOTE | 2018-07-26 10:30 | PN ---
Progress Note - Progress Note Date of Service: 07/26/18 SOAP: Subjective: [Pt reports she is doing well.. R hip still sore but getting better each day. Therapy session this morning went well. Denies dizziness, CP/SOB, n/v, f/c. Plans in place for D/C to [facility] tomorrow.] Objective: [A and O x3, NAD Seated in chair R hip dressing c/d/i Calves soft, NT. Distal gross motor and nv function intact. Platelets trending upward from 46,000 yesterday to 68,000 today (IVIG given yesterday) Vital Signs: Temp Pulse Resp BP Pulse Ox 98.7 F 88 16 131/64 94 07/26/18 07:52 07/26/18 07:52 07/26/18 07:52 07/26/18 07:52 07/26/18 07:52 Laboratory Results - last 24 hr 07/26/18 07/26/18 05:39 05:39 Hgb 7.8 L Hct 23 L Plt Count 68 L MPV 9.8 INR (Anticoag Therapy) 2.04 H ] Assessment: [s/p R TAHIRA POD #3] Plan: [PT/OT post hip precautions Monitor platelets - Lori following INR 2.04 - hold Coumadin Friday Plan D/C to [facility] on Friday ]
[2018-07-26] MEDS ORDERED: Warfarin TAB(*) 6 MG PO SCH (17:00)
[2018-07-26] MEDS: Atorvastatin* 10 MG TAB PO SCH (21:27)
[2018-07-27] MEDS: traMADol TAB* 50 MG PO PRN ×2 (04:42→11:06)
[2018-07-27 05:44] LABS: Hematocrit 22 % (35-47); Hemoglobin 7.5 g/dl (12.0-16.0); Mean Platelet Volume 9.4 um3 (7.4-10.4); Platelet Count 84 10^3/ul (150-450)
[2018-07-27 05:46] LABS: INR 1.39 (0.77-1.02)
[2018-07-27] MEDS: Acetaminophen TAB* 325 MG PO SCH ×2 (06:26→14:44)
[2018-07-27 08:11] VITALS: BP 123/66
[2018-07-27] MEDS: Magnesium Hydroxide LIQ* 30 ML UDC PO SCH (08:20)
--- NOTE | 2018-07-27 09:04 | PN ---
Progress Note - Progress Note Date of Service: 07/27/18 SOAP: Subjective: []Feeling better. Pain with movement but not sitting. Treated with Tylenol and Tramadol, tolerating well. Energy is good for what she is doing. No chest pain, palpetations, SOB. Acetaminophen (Tylenol Tab*) 650 mg PO Q8HR [facility] Last Admin: 07/27/18 06:26 Dose: 650 mg Atorvastatin Calcium (Lipitor*) 5 mg PO BEDTIME [facility]; Protocol Last Admin: 07/26/18 21:27 Dose: 5 mg Bisacodyl (Dulcolax Supp*) 10 mg [place] DAILY PRN PRN Reason: constipation Cevimeline HCl (Evoxac(Nf)) 30 mg PO TID [facility] Last Admin: 07/26/18 21:26 Dose: 30 mg Diphenhydramine HCl (Benadryl Iv*) 25 mg IV Q6H PRN PRN Reason: itching Docusate Sodium (Colace Cap*) 100 mg PO BID [facility] Last Admin: 07/26/18 21:27 Dose: 100 mg Lactated Ringer's (Lactated Ringers 1000 Ml Bag*) 1,000 mls @ 100 mls/hr IV PER RATE [facility] Last Admin: 07/25/18 04:12 Dose: 100 mls/hr Lactulose (Lactulose*) 30 ml PO Q6H PRN PRN Reason: constipation Magnesium Hydroxide (Milk Of Magnesia Liq*) 30 ml PO BID [facility] Last Admin: 07/27/18 08:20 Dose: Not Given Magnesium Hydroxide (Milk Of Magnesia Liq*) 30 ml PO Q6H PRN PRN Reason: constipation Metoclopramide HCl (Reglan Iv*) 10 mg IV Q6H PRN PRN Reason: NAUSEA Last Admin: 07/24/18 21:54 Dose: 10 mg Metoprolol Succinate (Toprol Xl Tab*) 100 mg PO QAM [facility] Last Admin: 07/26/18 08:20 Dose: 100 mg Morphine Sulfate (Morphine Inj ((Syringe))*) 2 mg IV Q2H PRN PRN Reason: PAIN - SEVERE Last Admin: 07/23/18 20:53 Dose: 2 mg Multivitamins/Minerals (Preservision Areds 2) 2 cap PO DAILY [facility] Last Admin: 07/26/18 08:21 Dose: 2 cap Ondansetron HCl (Zofran Inj*) 4 mg IV Q6H PRN PRN Reason: nausea Last Admin: 07/25/18 11:00 Dose: 4 mg Oxycodone HCl (Roxycodone Tab*) 10 mg PO Q4H PRN PRN Reason: PAIN - SEVERE Last Admin: 07/24/18 17:20 Dose: 5 mg Oxycodone/Acetaminophen (Percocet 5/325 Tab*) 1 tab PO Q4H PRN PRN Reason: PAIN Oxycodone/Acetaminophen (Percocet 5/325 Tab*) 2 tab PO Q4H PRN PRN Reason: PAIN Last Admin: 07/24/18 09:25 Dose: 2 tab Pharmacy Profile Note (Scopolamine Patch Remove*) 1 note PATCH OFF .AFTER 72 HOURS ONE Stop: 07/28/18 12:00 Saliva Substitute (Biotene Moisturizing Mouth (Nf)) 1 spray MT TID PRN; Protocol PRN Reason: dry mouth Tramadol HCl (Ultram*) 50 mg PO Q6H PRN PRN Reason: PAIN Last Admin: 07/27/18 04:42 Dose: 50 mg Objective: [] Vital Signs Temp Pulse Resp BP Pulse Ox 98.6 F 85 16 123/66 97 07/27/18 07:22 07/27/18 07:22 07/27/18 07:22 07/27/18 07:22 07/27/18 07:22 HEENT: Mucosa moist, pale CTA RRR S1S2, no tachycardia +BS, obese, NT No clear bruising thigh Assessment: []72 year old s/p hip surgery, h/o ITP. Plan: []1. Anemia. Bleeding after surgery. Hgb stable today from yesterday. - Start oral Iron Ferrous Sulfate 325 mg po daily - Senna 1 daily for constipation - Check CBC on Friday - RTC hematology in 2 weeks 2. ITP. Plts 84,000, follow and can give additional IVIG if needed 3. DVT. Hold anticoagulation today for anemia, will discuss with ortho.
[2018-07-27] MEDS: CEVIMELINE 30 MG PO SCH ×2 (09:38→14:43)
[2018-07-27] MEDS: MINERALS AREDS2 PO SCH (09:38)
[2018-07-27] MEDS: MULTIVITAMINS PO SCH (09:38)
[2018-07-27] MEDS: Metoprolol Succinate XL TAB* 100 MG PO SCH (09:38)
[2018-07-27] MEDS: Docusate CAP* 100 MG PO SCH (09:39)
--- NOTE | 2018-07-27 10:46 | PN ---
Progress Note - Progress Note Date of Service: 07/27/18 SOAP: Subjective: [] Patient seen and examined at bedside. She feels well without dizziness, nausea, chest pain, shortness of breath. Objective: []general: Well appearing, NAD RLE: Right hip dressing changed, incision CDI withotut surrounding erythema or discharge. DF/PF intact. Sensation intact distally. Dp2+ Calves supple and nontender without erythema, edema or palpable cords Assessment: []SP right total hip arthroplasty Plan: []WBAT PT/OT follow up with hematology in 2 weeks lovenox 40 mg sq qd start 07/28 for 3 weeks per discussion with hematology check CBC 07/29 Continue ferrous sulfate oral 325 mg qd Vital Signs Temp 98.6 F 07/27/18 07:22 Pulse 85 07/27/18 07:22 Resp 16 07/27/18 09:05 BP 123/66 07/27/18 07:22 Pulse Ox 97 07/27/18 07:22 Intake & Output 07/26/18 07/27/18 07/27/18 18:59 06:59 18:59 Intake Total 360 980 Output Total 1100 500 Balance -740 480 Intake: Oral 360 980 Output: Urine 1100 500 Other: # Bowel Movements 1 0 Estimated Stool Amount Medium Laboratory Last Values WBC 7.9 10^3/ul (3.5-10.8) 07/24/18 07:53 RBC 3.25 10^6/ul (4.00-5.40) L 07/24/18 07:53 Hgb 7.5 g/dl (12.0-16.0) L 07/27/18 05:16 Hct 22 % (35-47) L 07/27/18 05:16 MCV 85 fL (80-97) 07/24/18 07:53 MCH 29 pg (27-31) 07/24/18 07:53 MCHC 34 g/dl (31-36) 07/24/18 07:53 RDW 15 % (10.5-15) 07/24/18 07:53 Plt Count 84 10^3/ul (150-450) L 07/27/18 05:16 MPV 9.4 um3 (7.4-10.4) 07/27/18 05:16 Neut % (Auto) 79.8 % (38-83) 07/24/18 07:53 Lymph % (Auto) 9.6 % (25-47) L 07/24/18 07:53 [place] % (Auto) 10.5 % (0-7) H 07/24/18 07:53 Eos % (Auto) 0 % (0-6) 07/24/18 07:53 Baso % (Auto) 0.1 % (0-2) 07/24/18 07:53 Absolute Neuts (auto) 6.3 10^3/ul (1.5-7.7) 07/24/18 07:53 Absolute Lymphs (auto) 0.8 10^3/ul (1.0-4.8) L 07/24/18 07:53 Absolute Monos (auto) 0.8 10^3/ul (0-0.8) 07/24/18 07:53 Absolute Eos (auto) 0 10^3/ul (0-0.6) 07/24/18 07:53 Absolute Basos (auto) 0 10^3/ul (0-0.2) 07/24/18 07:53 Absolute Nucleated RBC 0 10^3/ul 07/24/18 07:53 Nucleated RBC % 0 07/24/18 07:53 INR (Anticoag Therapy) 1.39 (0.77-1.02) H 07/27/18 05:16 Sodium 133 mmol/L (135-145) L 07/27/18 05:20 Potassium 3.9 mmol/L (3.5-5.0) 07/24/18 07:53 Chloride 102 mmol/L (101-111) 07/24/18 07:53 Carbon Dioxide 28 mmol/L (22-32) 07/24/18 07:53 Anion Gap 3 mmol/L (2-11) 07/24/18 07:53 BUN 21 mg/dL (6-24) 07/24/18 07:53 Creatinine 0.68 mg/dL (0.51-0.95) 07/24/18 07:53 Est GFR ( Amer) 103.2 (>60) 07/24/18 07:53 Est GFR (Non-Af Amer) 85.3 (>60) 07/24/18 07:53 BUN/Creatinine Ratio 30.9 (8-20) H 07/24/18 07:53 Glucose 134 mg/dL (70-100) H 07/24/18 07:53 Calcium 8.4 mg/dL (8.6-10.3) L 07/24/18 07:53
--- NOTE | 2018-07-27 15:12 | DS ---
DATE OF ADMISSION: 07/23/2018. DATE OF DISCHARGE: 07/27/2018. PROVIDER: Dr. Yola Mckay * (dictated by JANINE Calderon). CHAIR CANER: JANINE Jennings. PREOP DIAGNOSIS: Severe end-stage degenerative osteoarthritis of the right hip joint. OPERATIVE PROCEDURE: Right total hip arthroplasty. HISTORY: Ms. Morris is a 72-year-old female who appears to have increasing severe right hip pain. She failed conservative management and elected to undergo right total hip arthroplasty. HOSPITAL COURSE: The patient was admitted to [facility] on 2017. She underwent a right total hip arthroplasty without complication. At baseline, the patient has a history of ITP with baseline platelets 45 to 80, 000. She was seen by Dr. Chin of hematology during her stay. The patient's right hip dressing remained clean, dry, and intact throughout her stay. Distal gross motor and neurovascular function remained in intact. Calves were subtle and nontender. Dressing was changed July 27. Incision was clean, dry and intact without surrounding erythema or discharge. Dorsiflexion and plantarflexion intact. Sensation intact distally. DP pulse 2+. White blood cell count 7.9, red blood cell 3.25, hemoglobin 7.5, hematocrit 22, platelet 84. I discussed the patient's ability to receive anticoagulation with current H and H and platelets with Dr. Chin who suggested DVT prophylaxis be held today , July 27, and may restart Lovenox alone on July 28. She will be given Lovenox 40 mg subcutaneously every day for the next three weeks. Will recheck her CBC on July 29. DISCHARGE MEDICATIONS: 1. Amlodipine 10 mg daily. 2. Cevimeline 30 mg p.o. t.i.d. 3. PreserVision two each p.o. q.a.m. 4. Saliva Substitute one spray t.i.d. prn. 5. Pravastatin 20 mg p.o. b.i.d. 6. Metoprolol Succinate 100 mg p.o. q.a.m. 7. Boswellia Leanna 2 mg p.o. at q.a.m. 8. Calcium plus vitamin D one tab p.o. q.a.m. 9. Acyclovir 5% topical 15 gm ointment topical application t.i.d. prn. 10. Mometasone Furoate 15 gm cream one application daily prn. 11. Ferrous Sulfate 325 mg p.o. daily. 12. Sennosides 8.6 mg tab daily. 13. Acetaminophen 650 mg p.o. q.8 hours prn. 14. Docusate 100 mg p.o. b.i.d. prn. 15. Percocet 5/325 one to two tabs every 4 to 6 hours as needed for pain, max daily dose of 10. 16. Lovenox 40 mg subcu every 24 hours for 3 weeks starting on July 28. DISCHARGE PLAN: The patient will be weightbearing as tolerated. She will continue to follow hip precautions. She will follow-up with Dr. Mckay in 10 to 14 days. Suture will be removed at this time. Pain control: Percocet 5/325 one to two tabs by mouth every 4 to 6 hours as needed for pain, max of ten tabs per day. Follow-up with Dr. Chin in two weeks. DVT prophylaxis will start July 28 with Lovenox 40 mg subcu once daily for three weeks. Nursing to repeat CBC on July 29. JANINE BIGGS [id number]/[facility] #: [id number] MTDD
[2018-07-28] MEDS ORDERED: Scopolamine PATCH Remove* 1 NOTE MISC PATCH OFF ONE (11:59)
== END 2018-07-27 15:00 | DRG 470 ==
LOC: SSU 07-23 19:44
PROVIDERS: ADMIT Orthopaedic Surgery Adult Reconstructive Orthopaedic Surgery; ATTEND Orthopaedic Surgery Adult Reconstructive Orthopaedic Surgery
PROC: 0SR904A Replacement of Right Hip Joint with Ceramic on Polyethylene Synthetic Substitute, Uncemented, Open Approach (ICD-10-PCS; principal; 2018-07-23 15:15)
PROC: 30233S1 Transfusion of Nonautologous Globulin into Peripheral Vein, Percutaneous Approach (ICD-10-PCS; 2018-07-25)
DX: M16.11 Unilateral primary osteoarthritis, right hip (principal); D69.3 Immune thrombocytopenic purpura; I10 Essential (primary) hypertension; M35.00 Sjogren syndrome, unspecified; G47.33 Obstructive sleep apnea (adult) (pediatric); E78.5 Hyperlipidemia, unspecified; M85.88 Other specified disorders of bone density and structure, other site; M25.751 Osteophyte, right hip; D64.9 Anemia, unspecified; K59.00 Constipation, unspecified; Z80.3 Family history of malignant neoplasm of breast; Z80.1 Family history of malignant neoplasm of trachea, bronchus and lung; Z82.3 Family history of stroke; Z82.49 Family history of ischemic heart disease and other diseases of the circulatory system; Z88.8 Allergy status to other drugs, medicaments and biological substances; Z87.891 Personal history of nicotine dependence; Z72.89 Other problems related to lifestyle; Z85.038 Personal history of other malignant neoplasm of large intestine
CPT/HCPCS: 36415; 80048; 84300; 85014; 85018; 85025; 85049; 85610; 88304; 88311; 99232; A9270-GY; C1776; G8978-GP-CK; G8979-GP-CI; G8987-GO-CL; G8988-GO-CI; J0690; J1100; J1568; J1650; J2250; J2270; J2405; J2704; J2765; J2795; J3010

== ENCOUNTER 2024-01-13 10:12 | Observation (INO) ==
[~2024-01-13 10:12] MED LIST: Naloxone 0.4 mg VIAL 0.4 mg/ml 1 ml VIAL IV PRN
[2024-01-13] MEDS ORDERED: ceFAZolin 2 GM PREMIX 2 GM/50 ML BAG ONE (10:47)
[2024-01-13] MEDS ORDERED: Tranexamic Acid 1 GM/100ML BAG 2,000 MG/200 ML BAG IV ONE (10:47)
[2024-01-13 10:54] LABS: Rapid COVID-19 Molecular Undetected (Undetected)
[2024-01-13] MEDS ORDERED: ROPIVACAINE 5 MG/ML 30 ML BTL (0.5%) ONE ×2 (11:33→12:11)
[2024-01-13] MEDS ORDERED: fentaNYL 100 mcg/2 ml 50 MCG/ML VIAL ONE ×3 (12:04→16:06)
[2024-01-13] MEDS ORDERED: Propofol 10 MG/ML 20 ML BTL ONE (12:04)
[2024-01-13] MEDS ORDERED: Lidocaine 2% PF 5 ML VIAL ONE (12:04)
[2024-01-13] MEDS ORDERED: Acetaminophen IV 1 GM/100ML 1,000 MG/100 ML BAG IV ONE (13:09)
[2024-01-13] MEDS ORDERED: Ondansetron 4 mg VIAL 2 MG/ML 2 ml VIAL ONE (13:09)
[2024-01-13] MEDS ORDERED: Dexamethasone IV 4 MG/ML VIAL 1 ml VIAL ONE (13:09)
[2024-01-13] MEDS ORDERED: Phenylephrine 40 mcg/mL 10mL (400mcg) SYRINGE ONE (13:17)
[2024-01-13] MEDS ORDERED: Glycopyrrolate IV 0.2 MG/ML 1 ML VIAL ONE (13:27)
[2024-01-13] MEDS ORDERED: Magnesium Hydroxide LIQ 30 ML UDC PO PRN (14:13)
[2024-01-13] MEDS ORDERED: Lactulose 30 ml UDC PO PRN (14:13)
[2024-01-13] MEDS ORDERED: Morphine 2 MG/ML SYRINGE IV PRN (14:13)
[2024-01-13] MEDS ORDERED: Ondansetron ODT 4 mg TAB 4 MG TAB PO PRN (14:13)
[2024-01-13] MEDS ORDERED: HYDROmorphone 0.5 MG/0.5 ML SYRINGE ONE (14:24)
[2024-01-13] MEDS: fentaNYL 100 mcg/2 ml 50 MCG/ML VIAL IV PRN (16:07)
[2024-01-13] MEDS: Lactated Ringers 1000 ml BAG 1,000 ML IV SCH ×2 (17:10→20:10)
[2024-01-13] MEDS ORDERED: CMCS: Saliva Substitute (NF) 1 SPRAY BTL MT PRN (17:44)
[2024-01-13] MEDS: Ondansetron 4 mg VIAL 2 MG/ML 2 ml VIAL IV PRN (17:58)
[2024-01-13] MEDS: Buffered Lidocaine 1% SYRIN 1 ml INTRADERM ONE (20:10)
[2024-01-13] MEDS: Magnesium Hydroxide LIQ 30 ML UDC PO SCH (22:02)
[2024-01-13] MEDS: CMCS: Pravastatin 20 mg TAB (NF) PO SCH (22:04)
[2024-01-13] MEDS: ceFAZolin 1 GM ADVAN 1 GM in NS 0.9% 50 ML 50 ML IVPB SCH (22:06)
[2024-01-13] MEDS: CEVIMELINE 30 MG PO SCH (23:18)
[2024-01-14 05:41] LABS: Calcium 8.4 mg/dL (8.6-10.3); Creatinine, Serum 0.73 mg/dL (0.51-0.95); Potassium 4.1 mmol/L (3.5-5.0); eGFR CKD-EPI 84.6 (>60)
[2024-01-14 06:06] LABS: Hematocrit 29.5 % (35-45); Hemoglobin 9.9 g/dL (11.5-14.3)
[2024-01-14 07:51] LABS: Mean Platelet Volume 10.1 fL (7.5-11.2); Platelet Count 59 10^3/uL (150-450)
[2024-01-14 10:05] VITALS: BP 116/82
[2024-01-14] MEDS: Vitamin THERAPEUTIC TAB PO SCH (10:06)
[2024-01-14] MEDS: NF: Multivitamins/Mins AREDS2 (NF) CAP PO SCH (10:09)
== END 2024-01-14 14:15 | disposition home or self-care (01) ==
LOC: OR 10:12 → SSU 10:12
PROVIDERS: ADMIT Orthopaedic Surgery Adult Reconstructive Orthopaedic Surgery; ATTEND Orthopaedic Surgery Adult Reconstructive Orthopaedic Surgery

== ENCOUNTER 2024-11-12 11:20 | Observation (INO) ==
[~2024-11-12 11:20] MED LIST changes: +NS 0.45% 1000 ml BAG 1,000 ML IV SCH; +Ondansetron 4 mg VIAL 2 MG/ML 2 ml VIAL IV PRN
[2024-11-12] MEDS ORDERED: ceFAZolin 2 GM PREMIX 2 GM/50 ML BAG ONE (12:03)
[2024-11-12] MEDS: Buffered Lidocaine 1% SYRIN 1 ml INTRADERM ONE (12:21)
[2024-11-12] MEDS: Scopolamine 1 mg/72hr PATCH TRANSDERM ONE (12:21)
[2024-11-12] MEDS: Acetaminophen IV 1 GM/100ML 1,000 MG/100 ML BAG IV ONE (12:21)
[2024-11-12] MEDS: Lactated Ringers 1000 ml BAG 1,000 ML IV SCH ×2 (12:21→19:08)
[2024-11-12 12:42] LABS: Rapid COVID-19 Molecular Undetected (Undetected)
[2024-11-12] MEDS ORDERED: ROPIVACAINE 5 MG/ML 30 ML BTL (0.5%) ONE ×2 (13:24→14:09)
[2024-11-12] MEDS ORDERED: Dexamethasone IV 4 MG/ML VIAL 1 ml VIAL ONE ×2 (14:09→14:31)
[2024-11-12] MEDS ORDERED: Morphine 2 MG/ML SYRINGE IV PRN (14:22)
[2024-11-12] MEDS ORDERED: Magnesium Hydroxide LIQ 30 ML UDC PO PRN (14:22)
[2024-11-12] MEDS ORDERED: Calcium Carb (TUMS) 500 mg CHEW TAB PO PRN (14:22)
[2024-11-12] MEDS ORDERED: Ondansetron ODT 4 mg TAB 4 MG TAB PO PRN (14:22)
[2024-11-12] MEDS ORDERED: Lactulose 30 ml UDC PO PRN (14:22)
[2024-11-12] MEDS ORDERED: fentaNYL 100 mcg/2 ml 50 MCG/ML VIAL ONE ×3 (14:31→17:22)
[2024-11-12] MEDS ORDERED: Lidocaine 2% PF 5 ML VIAL ONE (14:31)
[2024-11-12] MEDS ORDERED: Propofol 10 MG/ML 20 ML BTL ONE (14:31)
[2024-11-12] MEDS ORDERED: Ondansetron 4 mg VIAL 2 MG/ML 2 ml VIAL ONE (14:31)
[2024-11-12 14:33] LABS: INR 1.18 (0.85-1.14)
[2024-11-12 15:11] LABS: Hematocrit 34.7 % (35-45); Hemoglobin 11.5 g/dL (11.5-14.3); Mean Corpuscular Hemoglobin 27.7 pg (27-33); Mean Corpuscular Volume 83.9 fL (80-97); Mean Platelet Volume 10.4 fL (7.5-11.2); Platelet Count 85 10^3/uL (150-450); Red Blood Count 4.13 10^6/uL (3.63-4.92); White Blood Count 6.3 10^3/uL (3.8-11.8)
[2024-11-12] MEDS ORDERED: HYDROmorphone 0.5 MG/0.5 ML SYRINGE ONE (16:11)
[2024-11-12] MEDS: fentaNYL 100 mcg/2 ml 50 MCG/ML VIAL IV PRN (17:24)
[2024-11-12] MEDS ORDERED: Metoclopramide 5 MG/ML VIAL (10 mg) ONE (17:33)
[2024-11-12] MEDS: Metoclopramide 5 MG/ML VIAL (10 mg) IV PRN (17:44)
[2024-11-12] MEDS ORDERED: CMC:Saliva Substitute (NF) 1 SPRAY BTL MT PRN (18:38)
[2024-11-12] MEDS ORDERED: Carboxymethylcellulos 1% OPTH 1 AMP BOTH EYES PRN (18:38)
[2024-11-12] MEDS: Ondansetron 4 mg VIAL 2 MG/ML 2 ml VIAL IV PRN (20:31)
[2024-11-12] MEDS: PTO:Cevimeline 30 mg CAP (NF) PO SCH (21:50)
[2024-11-12] MEDS: Magnesium Hydroxide LIQ 30 ML UDC PO SCH (21:51)
[2024-11-12] MEDS: CMC:Pravastatin 20 mg TAB (NF) PO SCH (21:52)
[2024-11-12] MEDS: ceFAZolin 2 GM PREMIX 2 GM/50 ML BAG IV SCH (22:28)
[2024-11-13] MEDS: Lactated Ringers 1000 ml BAG 1,000 ML IV SCH (05:34)
[2024-11-13 06:01] LABS: Hematocrit 29.7 % (35-45); Hemoglobin 9.9 g/dL (11.5-14.3); Mean Platelet Volume 9.8 fL (7.5-11.2); Platelet Count 67 10^3/uL (150-450)
[2024-11-13 06:35] LABS: Calcium 8.6 mg/dL (8.6-10.3); Creatinine, Serum 0.73 mg/dL (0.51-0.95); Potassium 4.6 mmol/L (3.5-5.0); eGFR CKD-EPI 84.6 (>60)
[2024-11-13] MEDS: Vitamin THERAPEUTIC TAB PO SCH (09:01)
[2024-11-13 14:01] VITALS: BP 116/90
== END 2024-11-13 16:17 | disposition home or self-care (01) ==
LOC: SSU 11:20 → OR 11:20
PROVIDERS: ADMIT Orthopaedic Surgery Adult Reconstructive Orthopaedic Surgery; ATTEND Orthopaedic Surgery Adult Reconstructive Orthopaedic Surgery